=== PATIENT | female | born 1990 | race Caucasian/White ===

== ENCOUNTER 2016-10-11 17:05 | Observation (INO) | payer BC, OTHER ==
[~2016-10-11] VITALS: Ht 172.7 cm; Wt 67.9 kg
[~2016-10-11 17:05] MED LIST: ALPR0.25 PO; CRAN1CAP15 PO; INSPMPNVLG
[2016-10-11] MEDS ORDERED: ONDANSETRON INJ 2 MG/ML 2 ML VIAL IV STA ×2 (18:11→20:40)
[2016-10-11] MEDS ORDERED: MoRPHine SULFATE 4 MG/ML 1 ML CARP\\VIAL IV STA ×2 (18:11→22:32)
[2016-10-11] MEDS ORDERED: SODIUM CHLORIDE 0.9% 1000ML 1,000 ML IV STA ×2 (18:12→22:30)
[2016-10-11] MEDS ORDERED: INSDGI SC (18:19)
[2016-10-11] MEDS ORDERED: NVLGI/PEN SC (18:19)
[2016-10-11 18:50] LABS: HEMATOCRIT 40.9 % (37-47); MEAN CELL VOLUME 88.9 fL (80-100); MEAN CORPUSCULAR HEMOGLOBIN 30.4 pg (25-34); MEAN CORPUSCULAR HGB CONC 34.2 g/dl (32-36); MEAN PLATELET VOLUME 9.9 fL (7.4-10.4); PLATELET COUNT 272 K/uL (130-400); WHITE BLOOD COUNT 14.74 K/uL (4.8-10.8)
[2016-10-11 18:55] LABS: URINE APPEARANCE TURBID (CLEAR); URINE BILIRUBIN NEG (NEG); URINE COLOR YELLOW; URINE EPITHELIAL CELL AUTO >30 /lpf (0-5); URINE NITRITE NEG (NEG); URINE PH 6.5 (4.5-7.5); URINE SPECIFIC GRAVITY > 1.045 (1.000-1.030); UROBILINOGEN NEG (NEG)
[2016-10-11 19:04] LABS: MANUAL MICROSCOPIC REQUIRED? NO; REVIEW REQ? YES
[2016-10-11 19:09] LABS: BUN/CREATININE RATIO 14.1 (10-20); CALCIUM 9.3 mg/dl (8.5-10.1); CREATININE 0.81 mg/dl (0.60-1.20); POTASSIUM 3.9 mmol/L (3.5-5.1)
[2016-10-11 19:11] LABS: BETA-HYDROXYBUTYRATE 31.47 mg/dL (0.2-2.81)
[2016-10-11 19:13] LABS: BASO % 0.1 %; BASO ABS # 0.02 K/uL (0-0.2); COMPLETE YES; EOS % 0.1 %; IG% 0.3 %; LYMPH % 8.1 %; MONO % 4.9 %; NEUT % 86.5 %
--- NOTE | 2016-10-11 20:00 | DIAGNOSTIC IMAGING REPORT ---
PELVIC ULTRASOUND, TRANSABDOMINAL AND TRANSVAGINAL HISTORY: Pelvic cramps. Vomiting. COMPARISON: Pelvic ultrasound 01/20/2014. FINDINGS: Uterus: Unremarkable. Endometrial stripe: 6 mm in thickness. Right ovary: Normal in size and demonstrates normal color flow. There is a 2.0 cm dominant follicle/cyst. Left ovary: Normal in size and demonstrates normal color flow. Miscellaneous:No pelvic free fluid. IMPRESSION: No significant abnormality identified within the pelvis. Electronically signed by: Bashir Mckenzie M.D. 10/11/2016 7:59 PM Dictated Date/Time: 10/11/2016 7:57 PM
[2016-10-11] MEDS ORDERED: NovoLIN-R INSULIN PER UNIT CHARGE IV STA (20:04)
[2016-10-11 20:09] LABS: VEN BLD GAS O2 SATURATION 79.8 %; VEN BLOOD GAS BASE EXCESS -4.3 mmol/L
[2016-10-11] MEDS ORDERED: OPTIRAY 320 IV PRN (20:15)
--- NOTE | 2016-10-11 21:16 | EMERGENCY ROOM VISIT NOTE ---
History Report prepared by Libby: Dee Márquez Under the Supervision of: Dr. Yaw Ruiz M.D. First contact with patient: 18:05 Chief Complaint: VOMITING Stated Complaint: CRAMPS,VOMITING,DIZZY History of Present Illness The patient is a 26 year old female who presents to the Emergency Room with complaints of persistent vomiting since last night. She also complains of lower abdominal cramping that began about an hour and a half ago. She has never had similar symptoms in the past. The patient denies diarrhea. She had a normal bowel movement earlier today. Currently, she states that she feels like she is dehydrated. The patient has a history of endometriosis but her current symptoms do not feel like a flare up. Past medical history also includes diabetes. Her most recent sugar check was 139. The patient is sexually active but notes that she uses protection and she is not suspicious of . Denies fever, urinary symptoms, or other complaints. Source of History: patient Onset: last night Position: other (GI) Quality: other (vomiting) Timing: other (persistent) Associated Symptoms: + abdominal pain (cramping), No diarrhea, No fevers, No urinary symptoms Review of Systems See HPI for pertinent positives & negatives. A total of 10 systems reviewed and were otherwise negative. Past Medical & Surgical Medical Problems: (1) Dehydration (2) DIAB DOMITILA WO COMPL, TYPE I [JUVENILE TYPE], NOT UNCNTRLD (3) Nausea With Vomiting (4) Ovarian Cyst Nec/Nos (5) Urin Tract Infection Nos Family History FH: cancer Social History Smoking Status: Never Smoker Alcohol Use: occasionally Housing Status: lives with roommate Occupation Status: employed Current/Historical Medications Scheduled Insulin Glargine (Lantus), 30 UNITS SC QAM Miscellaneous Medications Insulin Aspart (Novolog Flexpen), SC Allergies Coded Allergies: Procaine (Verified Allergy, Severe, throat swells, 10/11/16) Physical Exam Vital Signs Date Time Temp Pulse Resp B/P Pulse Ox O2 Delivery O2 Flow Rate FiO2 10/11/16 20:15 97 18 110/54 99 Room Air 10/11/16 17:52 36.6 105 16 111/65 95 Room Air Physical Exam Constitutional: Vital signs reviewed. Eyes: Pupils are equal round reactive to light. Conjunctiva are noninjected. ENT: Pharynx is clear without erythema or exudate. Mucous membranes are dry. Neck supple without meningeal signs. Respiratory: Clear to auscultation bilaterally. Breath sounds are equal bilaterally. Cardiovascular: Regular rate and rhythm. No rubs or gallops. GI: Soft, nondistended, diffuse lower pelvic tenderness, no guarding. Bowel sounds are present. : Normal external genitalia. No bleeding. No cervical motion tenderness. No adnexal or uterine tenderness. Musculoskeletal: No peripheral edema. No CVA tenderness. Integumentary: No cyanosis. Neurological: The patient is awake and alert. No focal deficits. Psychiatric: Anxious. Medical Decision & Procedures ER Provider Diagnostic Interpretation: Radiology results as stated below per my review and the radiologist's interpretation: PELVIC ULTRASOUND, TRANSABDOMINAL AND TRANSVAGINAL HISTORY: Pelvic cramps. Vomiting. COMPARISON: Pelvic ultrasound 01/20/2014. FINDINGS: Uterus: Unremarkable. Endometrial stripe: 6 mm in thickness. Right ovary: Normal in size and demonstrates normal color flow. There is a 2.0 cm dominant follicle/cyst. Left ovary: Normal in size and demonstrates normal color flow. Miscellaneous:No pelvic free fluid. IMPRESSION: No significant abnormality identified within the pelvis. Electronically signed by: Bashir Mckenzie M.D. 10/11/2016 7:59 PM Dictated Date/Time: 10/11/2016 7:57 PM Laboratory Results 10/11/16 18:30 Red Blood Count 4.60, Mean Corpuscular Volume 88.9, Mean Corpuscular Hemoglobin 30.4, Mean Corpuscular Hemoglobin Concent 34.2, Mean Platelet Volume 9.9, Neutrophils (%) (Auto) 86.5, Lymphocytes (%) (Auto) 8.1, Monocytes (%) (Auto) 4.9, Eosinophils (%) (Auto) 0.1, Basophils (%) (Auto) 0.1, Neutrophils # (Auto) 12.75, Lymphocytes # (Auto) 1.20, Monocytes # (Auto) 0.72, Eosinophils # (Auto) 0.01, Basophils # (Auto) 0.02 10/11/16 18:30 Test 10/11/16 18:24 10/11/16 18:30 10/11/16 19:38 10/11/16 20:56 Urine Color YELLOW Urine Appearance TURBID (CLEAR) Urine pH 6.5 (4.5-7.5) Urine Specific [place] > 1.045 (1.000-1.030) Urine Protein 2+ (NEG) Urine Glucose (UA) 2+ (NEG) Urine Ketones 4+ (NEG) Urine Occult Blood 1+ (NEG) Urine Nitrite NEG (NEG) Urine Bilirubin NEG (NEG) Urine Urobilinogen NEG (NEG) Urine Leukocyte Esterase NEG (NEG) Urine WBC (Auto) >30 /hpf (0-5) Urine RBC (Auto) >30 /hpf (0-4) Urine Hyaline Casts (Auto) 0 /lpf (0-5) Urine Epithelial Cells (Auto) >30 /lpf (0-5) Urine Bacteria (Auto) 4+ (NEG) Urine Pathogenic Casts /lpf (0) Urine Yeast (Auto) (NONE PRSENT) Urine Test NEG (NEG) White Blood Count 14.74 K/uL (4.8-10.8) Red Blood Count 4.60 M/uL (4.2-5.4) Hemoglobin 14.0 g/dL (12.0-16.0) Hematocrit 40.9 % (37-47) Mean Corpuscular Volume 88.9 fL (80-100) Mean Corpuscular Hemoglobin 30.4 pg (25-34) Mean Corpuscular Hemoglobin Concent 34.2 g/dl (32-36) Platelet Count 272 K/uL (130-400) Mean Platelet Volume 9.9 fL (7.4-10.4) Neutrophils (%) (Auto) 86.5 % Lymphocytes (%) (Auto) 8.1 % Monocytes (%) (Auto) 4.9 % Eosinophils (%) (Auto) 0.1 % Basophils (%) (Auto) 0.1 % Neutrophils # (Auto) 12.75 K/uL (1.4-6.5) Lymphocytes # (Auto) 1.20 K/uL (1.2-3.4) Monocytes # (Auto) 0.72 K/uL (0.11-0.59) Eosinophils # (Auto) 0.01 K/uL (0-0.5) Basophils # (Auto) 0.02 K/uL (0-0.2) RDW Standard Deviation 42.2 fL (36.4-46.3) RDW Coefficient of Variation 13.0 % (11.5-14.5) Immature Granulocyte % (Auto) 0.3 % Immature Granulocyte # (Auto) 0.04 K/uL (0.00-0.02) Anion Gap 15.0 mmol/L (3-11) Est Creatinine Clear Calc Drug Dose 104.3 ml/min Estimated GFR () 114.6 Estimated GFR (Non- 98.8 BUN/Creatinine Ratio 14.1 (10-20) Calcium Level 9.3 mg/dl (8.5-10.1) Total Bilirubin 0.6 mg/dl (0.2-1) Direct Bilirubin 0.2 mg/dl (0-0.2) Aspartate Amino Transf (AST/SGOT) 11 U/L (15-37) Alanine Aminotransferase (ALT/SGPT) 13 U/L (12-78) Alkaline Phosphatase 63 U/L (45-117) Total Protein 8.2 gm/dl (6.4-8.2) Albumin 4.4 gm/dl (3.4-5.0) Lipase 81 U/L (73-393) Beta-Hydroxybutyric Acid 31.47 mg/dL (0.2-2.81) Venous Blood pH 7.38 (7.36-7.41) Venous Blood Partial Pressure CO2 34 mmHg (38.0-50.0) Venous Blood Partial Pressure O2 46 mmHg Venous Blood HCO3 20 mmol/L Venous Blood Oxygen Saturation 79.8 % Venous Blood Base Excess -4.3 mmol/L Test 10/11/16 21:00 Bedside Glucose 237 mg/dl (70-90) Laboratory results as reviewed by me. Medications Administered Medications (Trade) Dose Ordered Sig/Yamilet Route Start Time Stop Time Status Last Admin Dose Admin Morphine Sulfate (MoRPHine SULFATE INJ) 4 mg ONE STAT IV 10/11/16 18:11 10/11/16 18:12 DC 10/11/16 18:40 4 MG Ondansetron HCl 4 mg 4 mg NOW STAT IV 10/11/16 18:11 10/11/16 18:12 DC 10/11/16 18:39 4 MG Sodium Chloride (Nss 1000ml) 1,000 ml @ 999 mls/hr Q1H1M STAT IV 10/11/16 18:12 10/11/16 19:12 DC 10/11/16 18:33 999 MLS/HR Insulin Human Regular (novoLIN-R U-100 PER UNIT) 5 units NOW STAT IV 10/11/16 20:04 10/11/16 20:05 DC 10/11/16 20:12 5 UNITS Ondansetron HCl (Zofran Inj) 4 mg NOW STAT IV 10/11/16 20:40 10/11/16 20:41 DC 10/11/16 20:40 4 MG ED Course 1807: The patient was evaluated in room B11. A complete history and physical exam was performed. 1810: Ordered Zofran Inj 4 mg IV, Morphine Sulfate 4 mg IV, NSS 1000 ml @ 999 mls/hr IV. 2003: I reassessed the patient. She was feeling better but was still having pain. She agreed to a CT scan. Ordered Insulin Human Regular 5 units IV. 2029: The patient was signed out to Dr. Rg at the change of shift. Medical Decision this is a 26-year-old female presents with vomiting and lower abdominal pain.differential diagnosis includes ectopic , ovarian torsion, ovarian cyst, appendicitis, DKA, dehydration. I did perform a limited focused review of portions of the patient's old chart on the electronic medical record. The patient has had no recent pertinent visits to this hospital. I did evaluate the patient as noted above. IV access was established. I did treat patient with IV morphine and Zofran. Urine test is negative. Urinalysis is equivocal.a urine culture was sent. She denies urinary symptoms. I did order and review the patient's blood work as noted in the electronic medical record. Her white blood cell count is elevated. She does have an anion gap but no signs of significant acidosis on the ABG. The patient was given normal saline 1 L IV. She was also given insulin 5 units IV. Recheck her blood sugar was 237. I did order an ultrasound of the pelvis. I did review the images myself as well as the radiology report as described above. There is no evidence of torsion or acute abnormality. I did reexamine the patient. She does have improvement of her pain but is lead oxide mill tender on examination. I did feel further workup was indicated and so I did discuss with her CT scanning. She did agree to the CAT scan. CT scan of the abdomen and pelvis was ordered. The patient is awaiting this study and the patient was signed out to Dr. Rg. Impression Primary Impression: Pelvic pain Additional Impressions: Hyperglycemia Dehydration Scribe Attestation The scribe's documentation has been prepared under my direct and personally reviewed by me in its entirety. I confirm that the note above accurately reflects all work, treatment, procedures, and medical decision making performed by me. Departure Information Dispostion Still a Patient (signed out to Dr. Rg) Referrals No Doctor, Assigned (PCP) Patient Instructions My [facility] Problem Qualifiers
[2016-10-11] MEDS ORDERED: METOCLOPRAMIDE HCL INJ 5 MG/ML 2 ML VIAL IV STA (22:30)
[2016-10-11] MEDS ORDERED: FENTANYL CITRATE INJ 50 MCG/1 ML 2 ML VIAL IV STA (22:47)
[2016-10-12] MEDS ORDERED: CEFTRIAXONE SOD INJ 1 GM ADDVIAL IV STA (01:24)
[2016-10-12] MEDS ORDERED: NovoLIN-R INSULIN PER UNIT CHARGE IV STA (01:31)
[2016-10-12] MEDS ORDERED: SODIUM CHLORIDE 0.9% 1000ML 1,000 ML IV STA (01:31)
--- NOTE | 2016-10-12 01:48 | EMERGENCY ROOM VISIT NOTE ---
ED Visit Note First contact with patient: 20:32 The patient was taken in signout from Dr. Ruiz at the change of shift. She had undergone a physical examination, blood work, and ultrasound. She was pending CT scan. Pelvic examination was unremarkable. The patient has a leukocytosis. She does not have acidosis but does have ketosis. She was treated with IV insulin and IV fluids. She was given morphine and Zofran 2. She was still very symptomatic. She was vomiting. The patient was given an additional liter of fluid. She was given additional morphine and Reglan. Fentanyl was ordered because she had continued pain but then declined. She was starting to feel somewhat better with regards to the pain and nausea. Urinalysis was concerning for infection. CT imaging did not reveal any emergent intra-abdominal findings. The patient's suspected UTI was treated with IV Rocephin. Additional normal saline was administered. The patient received an additional dose of IV insulin. The patient's blood sugars continued to be elevated. Given the fact that she has the nausea, pain, suspected UTI, and persistent hyperglycemia with ketosis further evaluation and management in the hospital was felt to be appropriate. Consultation was made with internal medicine, Dr. Garrido for further management. 10/11/16 18:30 Red Blood Count 4.60, Mean Corpuscular Volume 88.9, Mean Corpuscular Hemoglobin 30.4, Mean Corpuscular Hemoglobin Concent 34.2, Mean Platelet Volume 9.9, Neutrophils (%) (Auto) 86.5, Lymphocytes (%) (Auto) 8.1, Monocytes (%) (Auto) 4.9, Eosinophils (%) (Auto) 0.1, Basophils (%) (Auto) 0.1, Neutrophils # (Auto) 12.75, Lymphocytes # (Auto) 1.20, Monocytes # (Auto) 0.72, Eosinophils # (Auto) 0.01, Basophils # (Auto) 0.02 10/11/16 18:30 Test 10/11/16 18:24 10/11/16 18:30 10/11/16 19:38 10/11/16 20:56 Urine Color YELLOW Urine Appearance TURBID (CLEAR) Urine pH 6.5 (4.5-7.5) Urine Specific [place] > 1.045 (1.000-1.030) Urine Protein 2+ (NEG) Urine Glucose (UA) 2+ (NEG) Urine Ketones 4+ (NEG) Urine Occult Blood 1+ (NEG) Urine Nitrite NEG (NEG) Urine Bilirubin NEG (NEG) Urine Urobilinogen NEG (NEG) Urine Leukocyte Esterase NEG (NEG) Urine WBC (Auto) >30 /hpf (0-5) Urine RBC (Auto) >30 /hpf (0-4) Urine Hyaline Casts (Auto) 0 /lpf (0-5) Urine Epithelial Cells (Auto) >30 /lpf (0-5) Urine Bacteria (Auto) 4+ (NEG) Urine Pathogenic Casts /lpf (0) Urine Yeast (Auto) (NONE PRSENT) Urine Test NEG (NEG) White Blood Count 14.74 K/uL (4.8-10.8) Red Blood Count 4.60 M/uL (4.2-5.4) Hemoglobin 14.0 g/dL (12.0-16.0) Hematocrit 40.9 % (37-47) Mean Corpuscular Volume 88.9 fL (80-100) Mean Corpuscular Hemoglobin 30.4 pg (25-34) Mean Corpuscular Hemoglobin Concent 34.2 g/dl (32-36) Platelet Count 272 K/uL (130-400) Mean Platelet Volume 9.9 fL (7.4-10.4) Neutrophils (%) (Auto) 86.5 % Lymphocytes (%) (Auto) 8.1 % Monocytes (%) (Auto) 4.9 % Eosinophils (%) (Auto) 0.1 % Basophils (%) (Auto) 0.1 % Neutrophils # (Auto) 12.75 K/uL (1.4-6.5) Lymphocytes # (Auto) 1.20 K/uL (1.2-3.4) Monocytes # (Auto) 0.72 K/uL (0.11-0.59) Eosinophils # (Auto) 0.01 K/uL (0-0.5) Basophils # (Auto) 0.02 K/uL (0-0.2) RDW Standard Deviation 42.2 fL (36.4-46.3) RDW Coefficient of Variation 13.0 % (11.5-14.5) Immature Granulocyte % (Auto) 0.3 % Immature Granulocyte # (Auto) 0.04 K/uL (0.00-0.02) Anion Gap 15.0 mmol/L (3-11) Est Creatinine Clear Calc Drug Dose 104.3 ml/min Estimated GFR () 114.6 Estimated GFR (Non- 98.8 BUN/Creatinine Ratio 14.1 (10-20) Calcium Level 9.3 mg/dl (8.5-10.1) Total Bilirubin 0.6 mg/dl (0.2-1) Direct Bilirubin 0.2 mg/dl (0-0.2) Aspartate Amino Transf (AST/SGOT) 11 U/L (15-37) Alanine Aminotransferase (ALT/SGPT) 13 U/L (12-78) Alkaline Phosphatase 63 U/L (45-117) Total Protein 8.2 gm/dl (6.4-8.2) Albumin 4.4 gm/dl (3.4-5.0) Lipase 81 U/L (73-393) Beta-Hydroxybutyric Acid 31.47 mg/dL (0.2-2.81) Venous Blood pH 7.38 (7.36-7.41) Venous Blood Partial Pressure CO2 34 mmHg (38.0-50.0) Venous Blood Partial Pressure O2 46 mmHg Venous Blood HCO3 20 mmol/L Venous Blood Oxygen Saturation 79.8 % Venous Blood Base Excess -4.3 mmol/L Test 10/11/16 22:33 Bedside Glucose 301 mg/dl (70-90) Last 24 Hours Test 10/11/16 18:24 10/11/16 18:30 10/11/16 18:36 10/11/16 19:38 Urine Color YELLOW Urine Appearance TURBID Urine pH 6.5 Urine Specific [place] > 1.045 Urine Protein 2+ Urine Glucose (UA) 2+ Urine Ketones 4+ Urine Occult Blood 1+ Urine Nitrite NEG Urine Bilirubin NEG Urine Urobilinogen NEG Urine Leukocyte Esterase NEG Urine WBC (Auto) >30 /hpf Urine RBC (Auto) >30 /hpf Urine Hyaline Casts (Auto) 0 /lpf Urine Epithelial Cells (Auto) >30 /lpf Urine Bacteria (Auto) 4+ Urine Pathogenic Casts /lpf Urine Yeast (Auto) Urine Test NEG White Blood Count 14.74 K/uL Red Blood Count 4.60 M/uL Hemoglobin 14.0 g/dL Hematocrit 40.9 % Mean Corpuscular Volume 88.9 fL Mean Corpuscular Hemoglobin 30.4 pg Mean Corpuscular Hemoglobin Concent 34.2 g/dl Platelet Count 272 K/uL Mean Platelet Volume 9.9 fL Neutrophils (%) (Auto) 86.5 % Lymphocytes (%) (Auto) 8.1 % Monocytes (%) (Auto) 4.9 % Eosinophils (%) (Auto) 0.1 % Basophils (%) (Auto) 0.1 % Neutrophils # (Auto) 12.75 K/uL Lymphocytes # (Auto) 1.20 K/uL Monocytes # (Auto) 0.72 K/uL Eosinophils # (Auto) 0.01 K/uL Basophils # (Auto) 0.02 K/uL RDW Standard Deviation 42.2 fL RDW Coefficient of Variation 13.0 % Immature Granulocyte % (Auto) 0.3 % Immature Granulocyte # (Auto) 0.04 K/uL Sodium Level 141 mmol/L Potassium Level 3.9 mmol/L Chloride Level 103 mmol/L Carbon Dioxide Level 23 mmol/L Anion Gap 15.0 mmol/L Blood Urea Nitrogen 11 mg/dl Creatinine 0.81 mg/dl Est Creatinine Clear Calc Drug Dose 104.3 ml/min Estimated GFR () 114.6 Estimated GFR (Non- 98.8 BUN/Creatinine Ratio 14.1 Random Glucose 307 mg/dl Calcium Level 9.3 mg/dl Total Bilirubin 0.6 mg/dl Direct Bilirubin 0.2 mg/dl Aspartate Amino Transf (AST/SGOT) 11 U/L Alanine Aminotransferase (ALT/SGPT) 13 U/L Alkaline Phosphatase 63 U/L Total Protein 8.2 gm/dl Albumin 4.4 gm/dl Lipase 81 U/L Beta-Hydroxybutyric Acid 31.47 mg/dL Bedside Glucose 256 mg/dl Venous Blood pH 7.38 Venous Blood Partial Pressure CO2 34 mmHg Venous Blood Partial Pressure O2 46 mmHg Venous Blood HCO3 20 mmol/L Venous Blood Oxygen Saturation 79.8 % Venous Blood Base Excess -4.3 mmol/L Test 10/11/16 20:56 10/11/16 21:00 10/11/16 22:33 Bedside Glucose 237 mg/dl 301 mg/dl Vital Signs Past 12 Hours Date Time Temp Pulse Resp B/P Pulse Ox O2 Delivery O2 Flow Rate FiO2 10/11/16 23:32 123 18 109/42 100 Room Air 10/11/16 22:33 124 10/11/16 21:50 104 16 111/55 98 Room Air 10/11/16 20:15 97 18 110/54 99 Room Air 10/11/16 17:52 36.6 105 16 111/65 95 Room Air Diagnosis: 1. Hyperglycemia with ketosis 2. Nausea and vomiting 3. Lower abdominal pain 4. Leukocytosis
[2016-10-12] MEDS ORDERED: MAGNESIUM HYDROXIDE SUSP 30 ML UDC PO PRN (02:00)
[2016-10-12] MEDS ORDERED: MoRPHine SULFATE 2 MG/ML CARP IV PRN (02:00)
[2016-10-12] MEDS ORDERED: ZOLPIDEM TARTRATE 5 MG TAB PO PRN (02:00)
[2016-10-12] MEDS ORDERED: POLYETHYLENE (MIRALAX) 17 GM PACK PO PRN (02:00)
[2016-10-12] MEDS ORDERED: METOCLOPRAMIDE HCL INJ 5 MG/ML 2 ML VIAL IV PRN (02:00)
[2016-10-12] MEDS ORDERED: ACETAMINOPHEN 325 MG TAB PO PRN (02:00)
[2016-10-12] MEDS ORDERED: ONDANSETRON INJ 2 MG/ML 2 ML VIAL IV PRN (02:00)
[2016-10-12] MEDS ORDERED: ALUMINUM/MAGNESIUM/SIMETH (MAALOX MAX) 30 ML UDC PO PRN (02:00)
[2016-10-12] MEDS ORDERED: IV FLUIDS COMPLETED PRN (02:15)
--- NOTE | 2016-10-12 02:21 | History and Physical ---
History & Physical Date & Time of Service: Oct 12, 2016 at 02:06 Chief Complaint: Cramps,Vomiting,Dizzy Primary Care Physician: No Doctor, Assigned History of Present Illness Source: patient 26 y/o F w/Hx DM1 presenting with persistent nausea/vomiting and diffuse abdominal pain. The pt states denies diarrhea, fevers or dysuria. She has an elevated WBC, an equivocal UA and ketosis without acidosis on initial labs. Her glucose has been over 300 despite multiple doses of insulin and her nausea has failed to resolve. She was sent for an abdominal ultrasound and then a CT both of which were negative for significant findings. Past Medical/Surgical History Medical Problems: (1) Dehydration Status: Resolved (2) DIAB DOMITILA WO COMPL, TYPE I [JUVENILE TYPE], NOT UNCNTRLD Status: Chronic (3) Nausea and vomiting Status: Resolved (4) Ovarian Cyst Nec/Nos Status: Resolved (5) Urin Tract Infection Nos Status: Resolved Family History FH: cancer Both parent alive and healthy Social History Drinks alcohol socially. Nonsmoker. 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 Smoking Status: Never Smoker Housing status: lives with family Occupational Status: employed Allergies Coded Allergies: Procaine (Verified Allergy, Severe, throat swells, 10/11/16) Home Medications Scheduled Insulin Glargine (Lantus), 30 UNITS SC QAM Miscellaneous Medications Insulin Aspart (Novolog Flexpen), SC Review of Systems Constitutional: No chills, No fever, No sweats Eyes: No worsening of vision ENT: No hearing loss, No nasal symptoms, No unusual epistaxis Respiratory: No cough, No sputum, No wheezing Cardiovascular: No PND, No chest pain, No orthopnea Abdomen: + nausea, + pain, + vomiting, No constipation, No diarrhea Musculoskeletal: No joint pain Genitourinary - Female: No dysuria, No urinary frequency, No urinary urgency Neurologic: No memory loss, No paralysis, No weakness Psychiatric: No depression symptoms Endocrine: No fatigue Hematologic / Lymphatic: No abnormal bleeding/bruising Integumentary: No rash Allergic / Immunologic: No environmental allergies Physical Exam Vital Signs Date Time Temp Pulse Resp B/P Pulse Ox O2 Delivery O2 Flow Rate FiO2 10/12/16 01:49 130 18 106/45 100 Room Air 10/11/16 23:32 123 18 109/42 100 Room Air 10/11/16 22:33 124 10/11/16 21:50 104 16 111/55 98 Room Air 10/11/16 20:15 97 18 110/54 99 Room Air 10/11/16 17:52 36.6 105 16 111/65 95 Room Air General Appearance: WD/WN, no apparent distress Head: normocephalic Eyes: normal inspection ENT: normal ENT inspection, pharynx normal Neck: supple, no JVD Respiratory/Chest: chest non-tender, lungs clear, normal breath sounds, no respiratory distress, no accessory muscle use Cardiovascular: no edema, no gallop, no JVD, no murmur, normal peripheral pulses, + tachycardia Abdomen/GI: normal bowel sounds, soft, + tenderness Back: normal inspection, no CVA tenderness Extremities/Musculoskelatal: normal inspection, no calf tenderness, normal capillary refill, no pedal edema, normal range of motion Neurologic/Psych: top stop attacher II-XII nml as tested, no motor/sensory deficits, alert, normal mood/affect, normal reflexes, oriented x 3 Skin: normal color Diagnostics Laboratory Results Results Past 24 Hours Test 10/11/16 18:24 10/11/16 18:30 10/11/16 18:36 10/11/16 19:38 Range/Units Urine Color YELLOW Urine Appearance TURBID CLEAR Urine pH 6.5 4.5-7.5 Urine Specific [place] > 1.045 1.000-1.030 Urine Protein 2+ NEG Urine Glucose (UA) 2+ NEG Urine Ketones 4+ NEG Urine Occult Blood 1+ NEG Urine Nitrite NEG NEG Urine Bilirubin NEG NEG Urine Urobilinogen NEG NEG Urine Leukocyte Esterase NEG NEG Urine WBC (Auto) >30 0-5 /hpf Urine RBC (Auto) >30 0-4 /hpf Urine Hyaline Casts (Auto) 0 0-5 /lpf Urine Epithelial Cells (Auto) >30 0-5 /lpf Urine Bacteria (Auto) 4+ NEG Urine Pathogenic Casts 0 /lpf Urine Yeast (Auto) NONE PRSENT Urine Test NEG NEG White Blood Count 14.74 4.8-10.8 K/uL Red Blood Count 4.60 4.2-5.4 M/uL Hemoglobin 14.0 12.0-16.0 g/dL Hematocrit 40.9 37-47 % Mean Corpuscular Volume 88.9 80-100 fL Mean Corpuscular Hemoglobin 30.4 25-34 pg Mean Corpuscular Hemoglobin Concent 34.2 32-36 g/dl Platelet Count 272 130-400 K/uL Mean Platelet Volume 9.9 7.4-10.4 fL Neutrophils (%) (Auto) 86.5 % Lymphocytes (%) (Auto) 8.1 % Monocytes (%) (Auto) 4.9 % Eosinophils (%) (Auto) 0.1 % Basophils (%) (Auto) 0.1 % Neutrophils # (Auto) 12.75 1.4-6.5 K/uL Lymphocytes # (Auto) 1.20 1.2-3.4 K/uL Monocytes # (Auto) 0.72 0.11-0.59 K/uL Eosinophils # (Auto) 0.01 0-0.5 K/uL Basophils # (Auto) 0.02 0-0.2 K/uL RDW Standard Deviation 42.2 36.4-46.3 fL RDW Coefficient of Variation 13.0 11.5-14.5 % Immature Granulocyte % (Auto) 0.3 % Immature Granulocyte # (Auto) 0.04 0.00-0.02 K/uL Sodium Level 141 136-145 mmol/L Potassium Level 3.9 3.5-5.1 mmol/L Chloride Level 103 98-107 mmol/L Carbon Dioxide Level 23 21-32 mmol/L Anion Gap 15.0 3-11 mmol/L Blood Urea Nitrogen 11 7-18 mg/dl Creatinine 0.81 0.60-1.20 mg/dl Est Creatinine Clear Calc Drug Dose 104.3 ml/min Estimated GFR () 114.6 Estimated GFR (Non- 98.8 BUN/Creatinine Ratio 14.1 10-20 Random Glucose 307 70-99 mg/dl Calcium Level 9.3 8.5-10.1 mg/dl Total Bilirubin 0.6 0.2-1 mg/dl Direct Bilirubin 0.2 0-0.2 mg/dl Aspartate Amino Transf (AST/SGOT) 11 15-37 U/L Alanine Aminotransferase (ALT/SGPT) 13 12-78 U/L Alkaline Phosphatase 63 45-117 U/L Total Protein 8.2 6.4-8.2 gm/dl Albumin 4.4 3.4-5.0 gm/dl Lipase 81 73-393 U/L Beta-Hydroxybutyric Acid 31.47 0.2-2.81 mg/dL Bedside Glucose 256 70-90 mg/dl Venous Blood pH 7.38 7.36-7.41 Venous Blood Partial Pressure CO2 34 38.0-50.0 mmHg Venous Blood Partial Pressure O2 46 mmHg Venous Blood HCO3 20 mmol/L Venous Blood Oxygen Saturation 79.8 % Venous Blood Base Excess -4.3 mmol/L Test 10/11/16 20:56 10/11/16 21:00 10/11/16 22:33 10/12/16 01:42 Range/Units Bedside Glucose 237 301 420 70-90 mg/dl Microbiology Results 10/11/16 Gram Stain, Received Pending 10/11/16 Genital Culture, Received Pending 10/11/16 Urine Culture, Received Pending Diagnostic Radiology Abdominal US and CT without significant findings Impression Assessment and Plan 26 y/o F w/Hx DM1 presenting with persistent nausea/vomiting and diffuse abdominal pain. The pt states denies diarrhea, fevers or dysuria. She has an elevated WBC, an equivocal UA and ketosis without acidosis on initial labs. Her glucose has been over 300 despite multiple doses of insulin and her nausea has failed to resolve. She was sent for an abdominal ultrasound and then a CT both of which were negative for significant findings. 1) Abdominal pain, nausea, vomiting - pt will be placed on a liquid diet, provided with antiemetics and IVF in addition to low-dose Morphine for abdominal pain 2) DM1- hyperglycemia - has persisted despite multiple doses of insulin so that we will place her on a drip - we will continue her Lantus AM which she states was recently increased as her HBA1C was over 8 when last checked. 3) Bacteruria - will treat pending cultures due to her current symptoms and leukocytosis. Full code - Lovenox prophylaxis Total time for this admit including chart review - review of meds, labs, imaging - discussion with pt and ER attending 36 min Level of Care Telemetry Resuscitation Status FULL RESUSCITATION VTE Prophylaxis VTE Risk Assessment Done? Y/N: Yes Risk Level: Low Given or contraindicated: Enoxaparin (Lovenox)SQ
[2016-10-12] MEDS ORDERED: INSULIN IV INFUSION PROTOCOL SCH (02:37)
[2016-10-12] MEDS ORDERED: DKA GOAL RANGE 150-250 mg/dl 1 EA STA (02:38)
[2016-10-12] MEDS ORDERED: MODERATE STRESS LEVEL STA (02:39)
[2016-10-12] MEDS ORDERED: INSULIN HUMAN REGULAR IV BOLUS 1.5 UNIT in SYRINGE 0 ML IV SCH (03:00)
[2016-10-12 03:15] VITALS: O2SAT 99; BMI 22.7
[2016-10-12] MEDS: INSULIN REGULAR 250 UNITS in SODIUM CHLORIDE 0.9% 250ML 250 ML IV SCH ×2 (03:30→14:03)
[2016-10-12] MEDS: NSS + 20MEQ KCL 1000ML 1,000 ML IV SCH ×2 (05:25→09:08)
--- NOTE | 2016-10-12 06:45 | DIAGNOSTIC IMAGING REPORT ---
CT OF THE ABDOMEN AND PELVIS WITH CONTRAST CLINICAL HISTORY: Lower abdominal pain and cramping. Evaluate for acute appendicitis. COMPARISON STUDY: CT of the abdomen and pelvis January 23, 2014 and pelvic ultrasound October 11, 2016. TECHNIQUE: Following IV administration of 93 mL of Optiray-320, axial images of the abdomen and pelvis were obtained from the lung bases to the proximal femurs. Images were reviewed in the axial, sagittal, and coronal planes. IV contrast was administered without complication. Oral contrast was administered. CT DOSE: 310.83 mGy.cm FINDINGS: The lung bases are clear. The liver, spleen, adrenal glands, kidneys and pancreas are normal. There is no hydronephrosis. The caliber and wall thickness of small and large bowel are normal. The appendix is normal. A 2.2 cm dominant follicle or cyst within the right ovary is noted. Skeletal structures are unremarkable. There is no lymphadenopathy. There is no abscess. IMPRESSION: 1. No acute process within the abdomen or pelvis. Normal appendix. 2. 2.2 cm dominant follicle or cyst within the right ovary. Electronically signed by: John Mosher M.D. 10/12/2016 6:44 AM Dictated Date/Time: 10/12/2016 6:40 AM
[2016-10-12 07:38] LABS: PROTHROMBIN TIME (PATIENT) 10.7 SECONDS (9.0-12.0)
[2016-10-12 07:55] VITALS: BP 99/51; PULSE 116; TEMP 37.1; O2SAT 96
[2016-10-12 08:13] LABS: BUN/CREATININE RATIO 13.8 (10-20); CALCIUM 7.9 mg/dl (8.5-10.1); CREATININE 0.93 mg/dl (0.60-1.20); PHOSPHORUS 2.3 mg/dl (2.5-4.9); POTASSIUM 4.3 mmol/L (3.5-5.1)
[2016-10-12 08:29] LABS: BETA-HYDROXYBUTYRATE 30.41 mg/dL (0.2-2.81)
[2016-10-12] MEDS ORDERED: LANTUS PER UNIT CHARGE SC SCH (09:00)
[2016-10-12] MEDS ORDERED: ENOXAPARIN 40 MG/0.4 ML SYR SC SCH (09:00)
[2016-10-12] MEDS: INSULIN ASPART 100 UNITS/ML 3 ML PEN SC SCH ×2 (09:10→12:04)
[2016-10-12] MEDS ORDERED: INSULIN GLARGINE PER UNIT 30 UNITS in SYRINGE 0 ML SC STA ×2 (09:43→13:43)
[2016-10-12] MEDS ORDERED: INSULIN GLARGINE PER UNIT 20 UNITS in SYRINGE 0 ML SC ONE (10:00)
[2016-10-12] MEDS ORDERED: LANTUS PER UNIT CHARGE SQ ONE ×2 (10:00→14:30)
[2016-10-12 12:12] VITALS: BP 100/60; PULSE 114; TEMP 37.1; O2SAT 97
[2016-10-12 13:39] LABS: BUN/CREATININE RATIO 15.9 (10-20); CALCIUM 7.9 mg/dl (8.5-10.1); CREATININE 0.82 mg/dl (0.60-1.20); POTASSIUM 4.6 mmol/L (3.5-5.1)
[2016-10-12 15:18] VITALS: Ht 172.7 cm; Wt 67.9 kg
[2016-10-12 15:21] VITALS: BP 89/57; PULSE 99; TEMP 36.8; O2SAT 100
[2016-10-12] MEDS ORDERED: DEXTROSE 50% 50 ML SYR IV PRN (16:00)
[2016-10-12] MEDS ORDERED: GLUCAGON FOR INJ 1 MG VIAL SQ PRN (16:00)
[2016-10-12] MEDS ORDERED: GLUCOSE 40% GEL 15 GM TUBE PO PRN (16:00)
[2016-10-12] MEDS ORDERED: GLUCOSE 10 TABS/TUBE PO PRN (16:00)
[2016-10-12] MEDS ORDERED: INSULIN ASPART 100 UNITS/ML 3 ML PEN SC SCH (16:15)
--- NOTE | 2016-10-12 16:21 | Discharge Instructions ---
Discharge Instructions Admission Reason for Admission: Hyperglycemia, Nausea And Vomiting Discharge Discharge Diagnosis / Problem: Hyperglycemia, Nausea/Vomiting Discharge Goals Goal(s): Improve disease control Activity Recommendations Activity Limitations: resume your previous activity . Instructions / Follow-Up Instructions / Follow-Up You were admitted with elevated blood glucose. Your urine culture was negative so we will not continue antibiotics - if you notice any urinary symptoms please call back or seek medical attention MARY. Follow up with your PCP and Water Service Dispatcher within 1 week. Current Hospital Diet Patient's current hospital diet: Diabetes Type 1 Diet Discharge Diet Recommended Diet: Diabetes Type 1 Diet Pending Studies Studies pending at discharge: no Medical Emergencies . Who to Call and When: Medical Emergencies: If at any time you feel your situation is an emergency, please call 911 immediately. . Non-Emergent Contact Non-Emergency issues call your: Primary Care Provider, Specialist . . "Provider Documentation" section prepared by Jackie Rob. VTE Core Measure Inpt VTE Proph given/why not?: Enoxaparin (Lovenox)SQ
--- NOTE | 2016-10-12 16:27 | Discharge Summary ---
Discharge Summary Admission Date: Oct 12, 2016 at 01:55 Discharge Date: Oct 12, 2016 Discharge Disposition: Home Principal Diagnosis: Hyperglycemia Problems/Secondary Diagnoses: Type 1 DM (Jackie Rob MD) Medication Reconciliation Continued Medications: Insulin Aspart (Novolog Flexpen) 100 Units/Ml Inj SC As needed. do not exceed 40 units a day. Insulin Glargine (Lantus) 100 Unit/Ml Inj 30 UNITS SC QAM, VIAL Discharge Exam Review of Systems: Constitutional: No chills, No fever, No sweats, No weakness, No weight loss Eyes: No worsening of vision Respiratory: No cough, No sputum, No wheezing Cardiovascular: No chest pain Abdomen: No constipation, No diarrhea, No nausea, No pain, No vomiting Musculoskeletal: No joint pain, No muscle pain Genitourinary - Female: No dysuria, No hematuria, No urinary frequency, No urinary incontinence, No urinary urgency Neurologic: No memory loss, No paralysis, No weakness Endocrine: No fatigue Hematologic / Lymphatic: No abnormal bleeding/bruising Integumentary: No rash Physical Exam: General Appearance: WD/WN, no apparent distress Eyes: normal inspection, PERRL ENT: hearing grossly normal Neck: supple, no JVD Respiratory/Chest: lungs clear, normal breath sounds, no respiratory distress Cardiovascular: regular rate, rhythm, no murmur, normal peripheral pulses Abdomen / GI: normal bowel sounds, non tender, soft Extremities: no calf tenderness, no pedal edema Neurologic/Psychiatric: alert, normal mood/affect, oriented x 3 Skin: no rash (Jackie Rob MD) Review of Systems: Constitutional: No fever Respiratory: No shortness of breath Cardiovascular: No chest pain Abdomen: No nausea, No pain, No vomiting Physical Exam: General Appearance: no apparent distress Respiratory/Chest: lungs clear, no respiratory distress Cardiovascular: regular rate, rhythm Abdomen / GI: normal bowel sounds, non tender, soft Neurologic/Psychiatric: alert, oriented x 3 Skin: warm/dry (Alessandra Quinones M.D.) Hospital Course HPI: 26 y/o F w/Hx DM1 presenting with persistent nausea/vomiting and diffuse abdominal pain. The pt states denies diarrhea, fevers or dysuria. She has an elevated WBC, an equivocal UA and ketosis without acidosis on initial labs. Her glucose has been over 300 despite multiple doses of insulin and her nausea has failed to resolve. She was sent for an abdominal ultrasound and then a CT both of which were negative for significant findings. HOSPITAL COURSE: Overnight, she reported she felt better and her symptoms resolved by morning. She tolerated breakfast, and once her anion gap closed (15 on admission, 7 the next day) she was resumed on her home dose of Lantus. 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 (Jackie Rob MD) I have reviewed the medical record and performed a history and physical examination of this patient today. I have discussed the case with Dr Rob. The above note reflects my findings, conclusions, and recommendations. Early DKA - resolved. outpatient f/u with endocrinology Total Time Spent: Greater than 30 minutes (40) (Alessandra Quinones M.D.) Discharge Instructions Please refer to the electronic Patient Visit Report (Discharge Instructions) for additional information. (Jackie Rob MD) Resident Tracking Resident Involvement: Resident Care Provided Care Provided: Adult [facility] (Jackie Rob MD)
[2016-10-12] MEDS ORDERED: [UNRECOGNIZED DRUG - REMARK] ONE (16:30)
[2016-10-12 17:33] VITALS: BP 113/69; PULSE 99; TEMP 36.8; O2SAT 100
--- NOTE | 2016-10-12 17:39 | Discharge Instructions ---
Discharge Instructions Admission Reason for Admission: Hyperglycemia, Nausea And Vomiting Discharge Discharge Diagnosis / Problem: High blood sugar, nausea, vomiting Discharge Goals Goal(s): Improve disease control Activity Recommendations Activity Limitations: per Instructions/Follow-up section . Instructions / Follow-Up Instructions / Follow-Up Neville was in the hospital on 10/12/16, please also excuse her for 10/13/16. Current Hospital Diet Patient's current hospital diet: Diabetes Type 1 Diet Discharge Diet Recommended Diet: Diabetes Type 1 Diet Pending Studies Studies pending at discharge: no Work Instructions Return To Work: 2 days (PLEASE EXCUSE HER FROM 10/11/16-10/23/16. SHE MAY RETURN TO WORK ON 10/14/16.) Medical Emergencies . Who to Call and When: Medical Emergencies: If at any time you feel your situation is an emergency, please call 911 immediately. . Non-Emergent Contact Non-Emergency issues call your: Primary Care Provider . . "Provider Documentation" section prepared by Jackie Rob. VTE Core Measure Inpt VTE Proph given/why not?: Enoxaparin (Lovenox)SQ
[2016-10-13] MEDS ORDERED: CEFTRIAXONE SOD INJ 1 GM in DEXTROSE 5% ADD-VANTAGE 50ML 50 ML IV SCH (02:00)
[2016-10-13 20:54] LABS: CHLAMYDIA TRACH RNA*** NOT DETECTED (NOT DETECTED); GC (NEIS GONORRHOEAE)RNA** NOT DETECTED (NOT DETECTED)
== END 2016-10-12 17:45 | disposition home or self-care (01) ==
LOC: ENRESERVDT → ENRESERVTM → C.EDB 17:06 → C.2T 10-12 01:55
PROVIDERS: ADMIT Internal Medicine; ATTEND Internal Medicine
DX: E10.65 Type 1 diabetes mellitus with hyperglycemia (principal); E86.0 Dehydration; R10.2 Pelvic and perineal pain; D72.829 Elevated white blood cell count, unspecified; Z87.440 Personal history of urinary (tract) infections; Z79.4 Long term (current) use of insulin